=== PATIENT | male | born 1955 | race Two or more races ===

== ENCOUNTER 2023-12-24 21:35 | Emergency (ER) | payer OTHER ==
[~2023-12-24] VITALS: Ht 172.7 cm; Wt 75.0 kg
[2023-12-24 22:00] VITALS: PULSE 78; RESP 13; O2SAT 96
[2023-12-24] MEDS: SODIUM CHLORIDE 0.9% 1,000 ML IV ONE (22:45)
[2023-12-24 22:56] LABS: Basophils # (auto) 0 10 ^3/uL (0-0.2); Basophils % (auto) 0.3 % (0.0-2.0); Eosinophils # (auto) 0 10 ^3/uL (0-0.8); Hematocrit 40.8 % (41.0-53.0); Hemoglobin 13.8 g/dL (13.5-17.5); Lymphocytes # (auto) 0.4 10 ^3/uL (0.4-5.4); Lymphocytes % (auto) 3.8 % (10.0-50.0); Mean Corpuscular Hemoglobin 32.7 pg (28.0-32.0); Mean Corpuscular Hgb Conc. 33.7 g/dL (32.0-36.0); Mean Corpuscular Volume 96.8 fL (80.0-100.0); Monocytes # (auto) 0.3 10 ^3/uL (0-1.3); Monocytes % (auto) 2.9 % (0.0-12.0); Red Blood Cells 4.22 10^6/uL (4.5-5.90); Red Cell Distribution Width 13.7 % (11.8-14.3); White Blood Cell 10.8 10^3/uL (4.4-10.8)
[2023-12-24 23:02] LABS: Chloride 100 mmol/L (98-107); Potassium 4.4 mmol/L (3.5-5.1); Sodium 136 mmol/L (136-145)
[2023-12-24 23:03] LABS: Anion Gap 15 (5-15); Calcium 8.9 mg/dL (8.7-10.4); Carbon Dioxide 21 mmol/L (20-30)
[2023-12-24 23:08] LABS: BUN/Creatinine Ratio 12.6 (10.0-20.0); Blood Urea Nitrogen 13 mg/dL (9-23); Glucose 146 mg/dL (74-106)
[2023-12-25] MEDS ORDERED: MORPHINE SULFATE 4 MG/ML SYR/VIAL IV ONE (02:15)
[2023-12-25] MEDS: IOHEXOL 300 MG/ML 100ML BOTTLE IJ ONE (02:37)
[2023-12-25] MEDS: KETOROLAC TROMETH 30 MG/ML 1ML VIAL IV ONE (03:33)
[2023-12-25 06:06] VITALS: RESP 18; O2SAT 96
[2023-12-25 06:14] VITALS: BP 122/60; PULSE 59; RESP 13; O2SAT 99
== END 2023-12-25 07:50 | disposition home or self-care (01) ==
LOC: EDBD 21:35 → ER 21:35
DX: L76.82 Other postprocedural complications of skin and subcutaneous tissue (principal); Y83.9 Surgical procedure, unspecified as the cause of abnormal reaction of the patient, or of later complication, without mention of misadventure at the time of the procedure
CPT/HCPCS: 36415; 74177; 80048; 85025; 96361; 96374; 99285; J1885; J2270; J7030; Q9967